=== PATIENT | male | born 1960 | race Two or more races ===

== ENCOUNTER 2022-12-10 04:51 | Day surgery (SDC) | payer OTHER ==
[~2022-12-10] VITALS: Ht 188 cm; Wt 83.9 kg
[~2022-12-10 04:51] MED LIST: CHILDREN'S ASPI81 MG PO; CRESTOR10 MG PO
[2022-12-10] MEDS ORDERED: PERCOCET 5-3251 EACH PO (09:52)
[2022-12-10] MEDS ORDERED: KETO10TA2 PO (09:53)
[2022-12-10] MEDS ORDERED: NEURONTIN300 MG PO (09:53)
[2022-12-10] MEDS ORDERED: DERMOPLAST PAIN78 GM TOP (09:53)
== END 2022-12-10 18:30 | disposition home or self-care (01) ==
LOC: CIR.AMB 04:51
PROVIDERS: ATTEND Surgery
DX: K64.3 Fourth degree hemorrhoids (principal); K62.5 Hemorrhage of anus and rectum; Z20.822 Contact with and (suspected) exposure to COVID-19; I10 Essential (primary) hypertension

== ENCOUNTER 2022-12-27 12:19 | Inpatient (IN) | payer OTHER ==
[~2022-12-27] VITALS: Ht 188 cm; Wt 83.9 kg
[~2022-12-27 12:19] MED LIST changes: +DERMOPLAST PAIN78 GM TOP; +KETO10TA2 PO; +NEURONTIN300 MG PO; +PERCOCET 5-3251 EACH PO
[2022-12-27] MEDS ORDERED: ROSUVASTATIN CA10 MG (16:06)
[2023-01-02] MEDS ORDERED: CIPRO500 MG PO (11:03)
[2023-01-02] MEDS ORDERED: INTESTINEX680 M1 PO (11:04)
[2023-01-02] MEDS ORDERED: JUVEN PACKET1 EAC1 PO (11:04)
== END 2023-01-02 14:22 | disposition home or self-care (01) | DRG 395 ==
LOC: ER 12:19 → SURH 14:27
PROVIDERS: Emergency Medicine; ADMIT Surgery; ATTEND Surgery
PROC: 0D9Q7ZX Drainage of Anus, Via Natural or Artificial Opening, Diagnostic (ICD-10-PCS; principal; 2022-12-30)
PROC: 3E0T3BZ Introduction of Anesthetic Agent into Peripheral Nerves and Plexi, Percutaneous Approach (ICD-10-PCS; 2022-12-30)
DX: K61.0 Anal abscess (principal); K64.3 Fourth degree hemorrhoids; B96.20 Unspecified Escherichia coli [E. coli] as the cause of diseases classified elsewhere; B96.1 Klebsiella pneumoniae [K. pneumoniae] as the cause of diseases classified elsewhere

== ENCOUNTER 2023-11-25 05:25 | Day surgery (SDC) | payer OTHER ==
[~2023-11-25 05:25] MED LIST changes: +CIPRO500 MG PO; +INTESTINEX680 M1 PO; +JUVEN PACKET1 EAC1 PO; +ROSUVASTATIN CA10 MG
[2023-11-25] MEDS ORDERED: DIBUCAINE 30 GM TUBE ONE (09:10)
[2023-11-25] MEDS ORDERED: POVIDONE-IODINE 118 ML BOTT TOP ONE (09:11)
[2023-11-25] MEDS ORDERED: BUPIVACAINE HCL 0.5% 50ML VIAL ONE (09:11)
[2023-11-25] MEDS ORDERED: HEMOSTATIC MATRIX 1 KIT KIT TOP ONE (09:11)
[2023-11-25] MEDS ORDERED: LIDOCAINE HCL 1%/EPINEPHRINE 20ML VIAL IJ ONE (09:12)
[2023-11-25] MEDS ORDERED: HYDROGEN PEROXIDE 473 ML BOTTLE TOP ONE (09:13)
[2023-11-25] MEDS ORDERED: CEFTRIAXONE SODIUM 2,000 MG VIAL ONE (09:30)
[2023-11-25] MEDS ORDERED: METRONIDAZOLE/SODIUM CHLORIDE 500 MG/100 ML PIGGYBACK IV ONE (09:30)
[2023-11-25] MEDS ORDERED: PERCOCET 5-3251 EACH PO (12:01)
[2023-11-25] MEDS ORDERED: CELECOXIB200 MG PO (12:01)
[2023-11-25] MEDS ORDERED: NEURONTIN300 MG PO (12:01)
== END 2023-11-25 16:05 | disposition home or self-care (01) ==
LOC: CIR.AMB 05:25
PROVIDERS: ATTEND Surgery
DX: K60.3 Anal fistula (principal); K57.30 Diverticulosis of large intestine without perforation or abscess without bleeding; K64.4 Residual hemorrhoidal skin tags